=== PATIENT | male | born 1960 | race African-American/Black ===

== ENCOUNTER 2022-05-16 03:55 | Inpatient (IN) ==
[2022-05-16] MEDS ORDERED: ONDANSETRON 4 MG/2 ML VIAL IV PRN (05:30)
[2022-05-16 06:06] LABS: Basophils % 0.2 % (0.0-0.8); Eosinophils # 0.1 10*3/uL (0.0-0.87); Eosinophils % 0.6 % (0.00-10.9); Hematocrit 24.2 VOL% (42.0-52.0); Hemoglobin 7.7 GM/DL (14.0-18.0); Immature Granulocytes Absolute 0.54 #; Lymphocytes # 3.1 10*3/uL (1.4-4.0); Lymphocytes % 17.5 % (21.2-54.2); Mean Corpuscular HGB Conc 31.8 GM/DL (32-36); Mean Corpuscular Volume 77.1 FL (87-102); Mean Platelet Volume 11.8 FL (9.6-12.0); Monocytes # 1.5 10*3/uL (0.11-0.8); Monocytes % 8.7 % (1.7-12.7); Platelet Count 209 T/CUMM (130-400); Red Blood Count 3.14 MC/CUMM (3.8-5.5); Red Cell Distribution Width 14.5 % (9.3-17.3); White Blood Count 17.8 T/CUMM (4-12)
[2022-05-16 06:17] LABS: INR 1.1; PT Patient Result 12.4 SECS (10.1-12.1); Partial Thromboplastin Time 28.1 SECS (23.7-32.9)
[2022-05-16 06:30] LABS: Eosinophils 1 % (0-10); Hypochromia Slight; Lymphocytes 21 % (20-55); Microcytosis Slight; Ovalocytes Slight; Platelet Estimate Adequate; Total Cells Counted 100
[2022-05-16 06:31] LABS: Misc Morphology F
[2022-05-16 06:41] LABS: Alanine Aminotransferase 31 U/L (16-61); Albumin 2.9 G/DL (3.4-5.0); Alkaline Phosphatase 53 U/L (45-117); Aspartate Amino Transferase 23 U/L (0-37); Bilirubin,Total < 0.39 MG/DL (0.20-1.00); Blood Urea Nitrogen 101 MG/DL (7-18); Calcium 7.1 MG/DL (8.5-10.1); Carbon Dioxide 22 MMOL/L (21-32); Chloride 105 MMOL/L (98-107); Glucose 251 MG/DL (74-106); Osmolality,Calculated 312.8 MOS/KG (273-304); Potassium 4.5 MMOL/L (3.5-5.1); Sodium 137 MMOL/L (136-145); Total Protein 6.6 G/DL (6.4-8.2)
[2022-05-16] MEDS: ALBUTEROL 2.5 MG/3 ML NEB RESP TX SCH ×3 (06:50→19:22)
[2022-05-16 07:13] LABS: Arterial Base Excess iSTAT -2 MMOL/L (-2.5-2.5); Arterial Bicarbonate iSTAT 22.8 MMOL/L (20-26); Arterial O2 Saturation iSTAT 99 % (95-100); Arterial PCO2 iSTAT 40 MM HG (35-48); Arterial PO2 iSTAT 150 MM HG (80-95); Arterial Total CO2 iSTAT 24 MMO/L (23-27); Arterial pH iSTAT 7.368 (7.35-7.45)
[2022-05-16 08:42] LABS: Risk Ratio 2.48; VLDL Cholesterol 18.4 MG/DL
[2022-05-16] MEDS: ENOXAPARIN 80 MG/0.8 ML SYRINGE SUBCUT SCH (09:01)
[2022-05-16] MEDS: FUROSEMIDE 40 MG/4 ML VIAL IV SCH ×2 (09:02→17:11)
[2022-05-16] MEDS: AZITHROMYCIN INJ 500 MG in SODIUM CHLORIDE 0.9% 250 ML IV SCH (09:09)
[2022-05-16] MEDS: ISOSORBIDE MONONITRATE 30 MG TABLET PO SCH (10:58)
[2022-05-16] MEDS: ASPIRIN 325 MG TABLET PO SCH (10:58)
[2022-05-16] MEDS: EZETIMIBE 10 MG TABLET PO SCH (10:58)
[2022-05-16] MEDS: PANTOPRAZOLE 40 MG TABLET PO SCH (10:59)
[2022-05-16] MEDS: carvediloL 6.25 MG TABLET PO SCH ×2 (10:59→17:20)
[2022-05-16] MEDS: DOCUSATE SODIUM 100 MG CAPSULE PO SCH ×2 (11:00→20:53)
[2022-05-16] MEDS ORDERED: GLUCAGON 1 MG VIAL IM PRN (11:03)
[2022-05-16] MEDS ORDERED: DEXTROSE 10% 250 ML BAG IV PRN (11:08)
[2022-05-16 12:04] LABS: Basophils % 0.2 % (0.0-0.8); Eosinophils # 0.1 10*3/uL (0.0-0.87); Eosinophils % 0.9 % (0.00-10.9); Hematocrit 24.6 VOL% (42.0-52.0); Immature Granulocytes % 2.7 %; Immature Granulocytes Absolute 0.44 #; Lymphocytes # 3.6 10*3/uL (1.4-4.0); Lymphocytes % 22.2 % (21.2-54.2); Mean Corpuscular HGB Conc 32.5 GM/DL (32-36); Mean Corpuscular Volume 76.4 FL (87-102); Mean Platelet Volume 10.4 FL (9.6-12.0); Monocytes # 1.3 10*3/uL (0.11-0.8); Monocytes % 7.7 % (1.7-12.7); Neutrophils % 66.3 % (38.7-73.9); Platelet Count 269 T/CUMM (130-400); Red Blood Count 3.22 MC/CUMM (3.8-5.5); Red Cell Distribution Width 14.4 % (9.3-17.3); White Blood Count 16.2 T/CUMM (4-12)
[2022-05-16 12:10] LABS: Eosinophils 3 % (0-10); Lymphocytes 26 % (20-55); Platelet Estimate Adequate; Total Cells Counted 100
[2022-05-16 12:11] LABS: Hypochromia Slight; Microcytosis Slight
[2022-05-16 12:25] LABS: Ferritin 257.9 ng/mL (26-388)
[2022-05-16 12:35] LABS: Folate 7.35 NG/ML (5.38-24.0)
[2022-05-16] MEDS: hydrALAZINE 20 MG/1 ML VIAL IV PRN (13:00)
[2022-05-16] MEDS: INSULIN REGULAR 100 UNIT/ML SUBCUT SCH ×3 (13:03→20:53)
[2022-05-16 16:01] LABS: Squamous Epithelial Cell,Urine Occasional /HPF (0-10)
[2022-05-16 16:03] LABS: Bilirubin,Urine Negative (Negative); Blood, Urine Trace mg/dL (Negative); Glucose,Urine (UA) 100 mg/dL (Negative); Ketones,Urine Negative (Negative); Nitrite,Urine Negative (Negative); Protein,Urine 100 mg/dL (Negative); Urine Appearance Clear (Clear); Urine Color Yellow (Yellow); Urine Urobilinogen 0.2 eU/dL (<2.0)
[2022-05-16 16:21] LABS: Barbiturates Screen,Urine Negative (Negative); Benzodiazepines Screen,Urine Negative (Negative); Cannabinoid Screen,Urine Negative (Negative); Opiate Screen,Urine Negative (Negative); Phencyclidine Screen,Urine Negative (Negative)
[2022-05-16] MEDS: ACETAMINOPHEN 325 MG TABLET PO PRN (17:09)
[2022-05-17 07:13] LABS: Basophils % 0.2 % (0.0-0.8); Eosinophils # 0.2 10*3/uL (0.0-0.87); Eosinophils % 1.2 % (0.00-10.9); Hematocrit 23.1 VOL% (42.0-52.0); Hemoglobin 7.6 GM/DL (14.0-18.0); Immature Granulocytes % 2.1 %; Immature Granulocytes Absolute 0.27 #; Lymphocytes # 2.5 10*3/uL (1.4-4.0); Lymphocytes % 19.3 % (21.2-54.2); Mean Corpuscular HGB Conc 32.9 GM/DL (32-36); Mean Platelet Volume 11.3 FL (9.6-12.0); Monocytes # 1.4 10*3/uL (0.11-0.8); Monocytes % 10.8 % (1.7-12.7); Neutrophils % 66.4 % (38.7-73.9); Platelet Count 272 T/CUMM (130-400); Red Blood Count 3.04 MC/CUMM (3.8-5.5); Red Cell Distribution Width 14.4 % (9.3-17.3); White Blood Count 12.8 T/CUMM (4-12)
[2022-05-17 07:31] LABS: Risk Ratio 3.12
[2022-05-17] MEDS: ALBUTEROL 2.5 MG/3 ML NEB RESP TX SCH ×4 (07:31→20:09)
[2022-05-17 07:38] LABS: Calcium 7.5 MG/DL (8.5-10.1); Osmolality,Calculated 309.5 MOS/KG (273-304); Potassium 4.8 MMOL/L (3.5-5.1)
[2022-05-17] MEDS: INSULIN REGULAR 100 UNIT/ML SUBCUT SCH ×4 (08:20→21:21)
[2022-05-17] MEDS: cefTRIAXone 1,000 MG in SODIUM CHLORIDE 0.9% 100 ML IV SCH (09:46)
[2022-05-17] MEDS: FUROSEMIDE 40 MG/4 ML VIAL IV SCH ×2 (09:47→17:26)
[2022-05-17] MEDS: ENOXAPARIN 80 MG/0.8 ML SYRINGE SUBCUT SCH (09:48)
[2022-05-17] MEDS: AZITHROMYCIN INJ 500 MG in SODIUM CHLORIDE 0.9% 250 ML IV SCH (11:47)
[2022-05-17] MEDS ORDERED: NITROGLYCERIN SL 0.4 MG TABLET SL PRN (12:35)
[2022-05-17] MEDS: EZETIMIBE 10 MG TABLET PO SCH (14:44)
[2022-05-17] MEDS: DOCUSATE SODIUM 100 MG CAPSULE PO SCH ×2 (14:44→21:21)
[2022-05-17] MEDS: PANTOPRAZOLE 40 MG TABLET PO SCH (14:44)
[2022-05-17] MEDS: ASPIRIN 325 MG TABLET PO SCH (14:45)
[2022-05-17] MEDS: ISOSORBIDE MONONITRATE 30 MG TABLET PO SCH (14:45)
[2022-05-17] MEDS: FERROUS SULFATE 325 MG TABLET PO SCH ×2 (14:48→21:21)
[2022-05-17] MEDS: carvediloL 6.25 MG TABLET PO SCH (14:52)
[2022-05-17] MEDS: carvediloL 12.5 MG TABLET PO SCH (17:25)
[2022-05-18] MEDS: ALBUTEROL 2.5 MG/3 ML NEB RESP TX SCH ×4 (02:05→19:15)
[2022-05-18 04:22] LABS: Basophils % 0.1 % (0.0-0.8); Eosinophils # 0.1 10*3/uL (0.0-0.87); Eosinophils % 1.3 % (0.00-10.9); Hematocrit 21.4 VOL% (42.0-52.0); Hemoglobin 6.9 GM/DL (14.0-18.0); Immature Granulocytes % 1.5 %; Immature Granulocytes Absolute 0.13 #; Lymphocytes # 2.3 10*3/uL (1.4-4.0); Lymphocytes % 26.6 % (21.2-54.2); Mean Corpuscular HGB Conc 32.2 GM/DL (32-36); Mean Corpuscular Volume 76.4 FL (87-102); Mean Platelet Volume 10.9 FL (9.6-12.0); Monocytes # 1.1 10*3/uL (0.11-0.8); Monocytes % 12.7 % (1.7-12.7); Neutrophils % 57.8 % (38.7-73.9); Platelet Count 229 T/CUMM (130-400); Red Cell Distribution Width 14.2 % (9.3-17.3); White Blood Count 8.5 T/CUMM (4-12)
[2022-05-18 04:48] LABS: Calcium 6.9 MG/DL (8.5-10.1); Osmolality,Calculated 304.2 MOS/KG (273-304); Potassium 4.3 MMOL/L (3.5-5.1)
[2022-05-18] MEDS ORDERED: SODIUM CHLORIDE 0.9% 1,000 ML IV PRN ×2 (07:36→11:51)
[2022-05-18] MEDS: INSULIN REGULAR 100 UNIT/ML SUBCUT SCH ×4 (08:29→21:51)
[2022-05-18] MEDS: carvediloL 12.5 MG TABLET PO SCH (08:37)
[2022-05-18] MEDS: EZETIMIBE 10 MG TABLET PO SCH (08:37)
[2022-05-18] MEDS: DOCUSATE SODIUM 100 MG CAPSULE PO SCH ×2 (08:37→21:51)
[2022-05-18] MEDS: FERROUS SULFATE 325 MG TABLET PO SCH (08:37)
[2022-05-18] MEDS: ISOSORBIDE MONONITRATE 30 MG TABLET PO SCH (08:37)
[2022-05-18] MEDS: PANTOPRAZOLE 40 MG TABLET PO SCH (08:37)
[2022-05-18] MEDS: cefTRIAXone 1,000 MG in SODIUM CHLORIDE 0.9% 100 ML IV SCH (08:38)
[2022-05-18] MEDS: FUROSEMIDE 40 MG/4 ML VIAL IV SCH ×2 (08:38→17:33)
[2022-05-18] MEDS ORDERED: LIDOCAINE 1% 5 ML VIAL ONE (09:11)
[2022-05-18] MEDS ORDERED: BUPIVACAINE MPF 0.25% 10 ML VIAL ONE (09:11)
[2022-05-18] MEDS ORDERED: HEPARIN 5,000 UNIT/1 ML VIAL ONE (09:11)
[2022-05-18] MEDS ORDERED: ETOMIDATE 40 MG/20 ML VIAL IV ONE (09:17)
[2022-05-18] MEDS ORDERED: MIDAZOLAM 2 MG/2 ML VIAL ONE (09:17)
[2022-05-18] MEDS ORDERED: LIDOCAINE 2% 5 ML VIAL ONE (09:17)
[2022-05-18] MEDS ORDERED: propofoL 200 MG/20 ML VIAL IV ONE (09:17)
[2022-05-18] MEDS ORDERED: fentaNYL 100 MCG/2 ML VIAL ONE (09:17)
[2022-05-18] MEDS ORDERED: SODIUM CHLORIDE 0.9% 100 ML IV ONE (09:18)
[2022-05-18 09:39] LABS: Folate 6.46 NG/ML (5.38-24.0)
[2022-05-18] MEDS ORDERED: NITROGLYCERIN 2% OINT 1 INCH/GM PACK TOP ONE (09:39)
[2022-05-18] MEDS ORDERED: TISSUE ADHESIVE 1 EACH APPLICATOR TOP ONE (10:39)
[2022-05-18 11:04] LABS: % Iron Saturation 16.6 % (18-50); Ferritin 223.2 ng/mL (26-388)
[2022-05-18] MEDS ORDERED: HEPARIN 10,000 UNIT/10 ML VIAL IV PRN (12:35)
[2022-05-18 12:56] LABS: Basophils % 0.2 % (0.0-0.8); Eosinophils # 0.1 10*3/uL (0.0-0.87); Eosinophils % 1.6 % (0.00-10.9); Hemoglobin 7.2 GM/DL (14.0-18.0); Immature Granulocytes % 1.2 %; Immature Granulocytes Absolute 0.07 #; Lymphocytes # 1.3 10*3/uL (1.4-4.0); Lymphocytes % 21.6 % (21.2-54.2); Mean Corpuscular HGB Conc 32.7 GM/DL (32-36); Mean Corpuscular Volume 76.9 FL (87-102); Mean Platelet Volume 10.9 FL (9.6-12.0); Monocytes # 0.4 10*3/uL (0.11-0.8); Monocytes % 6.7 % (1.7-12.7); Neutrophils % 68.7 % (38.7-73.9); Platelet Count 219 T/CUMM (130-400); Red Blood Count 2.86 MC/CUMM (3.8-5.5); Red Cell Distribution Width 14.4 % (9.3-17.3); White Blood Count 5.8 T/CUMM (4-12)
[2022-05-18] MEDS ORDERED: EPOETIN ALFA-EPBX 3,000 UNIT/ML VIAL IV PRN (13:14)
[2022-05-18 13:21] LABS: Folate 6.95 NG/ML (5.38-24.0); Vitamin B12 805 PG/ML (211-911)
[2022-05-18 14:11] LABS: Sedimentation Rate-Westergren 101 MM/HR (0-20)
[2022-05-18] MEDS: hydrALAZINE 20 MG/1 ML VIAL IV PRN (16:37)
[2022-05-18] MEDS: ACETAMINOPHEN 325 MG TABLET PO PRN (16:37)
[2022-05-18] MEDS: ASPIRIN 325 MG TABLET PO SCH (16:51)
[2022-05-18] MEDS: ENOXAPARIN 80 MG/0.8 ML SYRINGE SUBCUT SCH (16:51)
[2022-05-18] MEDS: carvediloL 25 MG TABLET PO SCH (17:36)
[2022-05-18] MEDS: AZITHROMYCIN INJ 500 MG in SODIUM CHLORIDE 0.9% 250 ML IV SCH (19:45)
[2022-05-18 20:19] LABS: Hematocrit 31.1 VOL% (42.0-52.0); Hemoglobin 10.4 GM/DL (14.0-18.0)
[2022-05-19] MEDS: ALBUTEROL 2.5 MG/3 ML NEB RESP TX SCH ×4 (00:30→19:00)
[2022-05-19 05:36] LABS: Basophils % 0.1 % (0.0-0.8); Eosinophils # 0.1 10*3/uL (0.0-0.87); Hematocrit 32.8 VOL% (42.0-52.0); Hemoglobin 10.8 GM/DL (14.0-18.0); Immature Granulocytes Absolute 0.12 #; Lymphocytes # 1.2 10*3/uL (1.4-4.0); Lymphocytes % 10.4 % (21.2-54.2); Mean Corpuscular HGB Conc 32.9 GM/DL (32-36); Mean Corpuscular Volume 79.8 FL (87-102); Mean Platelet Volume 10.4 FL (9.6-12.0); Monocytes # 1.3 10*3/uL (0.11-0.8); Monocytes % 11.3 % (1.7-12.7); Neutrophils % 76.2 % (38.7-73.9); Platelet Count 200 T/CUMM (130-400); Red Blood Count 4.11 MC/CUMM (3.8-5.5); Red Cell Distribution Width 15.8 % (9.3-17.3); White Blood Count 11.7 T/CUMM (4-12)
[2022-05-19 06:00] LABS: Calcium 7.8 MG/DL (8.5-10.1); Osmolality,Calculated 293.8 MOS/KG (273-304); Potassium 4.2 MMOL/L (3.5-5.1)
[2022-05-19 07:34] LABS: Hepatitis B Surface Ag Quant < 0.10 Index; Hepatitis B Surface Ag Result Non-Reactive (NonReactive)
[2022-05-19] MEDS: INSULIN REGULAR 100 UNIT/ML SUBCUT SCH ×4 (07:38→21:34)
[2022-05-19 09:32] LABS: Hemoglobin A1 (Alkaline) 97.6 % (96.5-98.5); Hemoglobin A2 (Alkaline) 2.4 % (1.5-3.5)
[2022-05-19] MEDS: cefTRIAXone 1,000 MG in SODIUM CHLORIDE 0.9% 100 ML IV SCH (11:53)
[2022-05-19] MEDS: PANTOPRAZOLE 40 MG TABLET PO SCH (11:54)
[2022-05-19] MEDS: carvediloL 25 MG TABLET PO SCH ×2 (11:54→17:53)
[2022-05-19] MEDS: ASPIRIN 325 MG TABLET PO SCH (11:54)
[2022-05-19] MEDS: EZETIMIBE 10 MG TABLET PO SCH (11:55)
[2022-05-19] MEDS: ISOSORBIDE MONONITRATE 30 MG TABLET PO SCH (11:55)
[2022-05-19] MEDS: DOCUSATE SODIUM 100 MG CAPSULE PO SCH ×2 (11:55→21:34)
[2022-05-19] MEDS: ENOXAPARIN 80 MG/0.8 ML SYRINGE SUBCUT SCH (11:57)
[2022-05-19] MEDS: FUROSEMIDE 40 MG/4 ML VIAL IV SCH (12:06)
[2022-05-19] MEDS: AZITHROMYCIN INJ 500 MG in SODIUM CHLORIDE 0.9% 250 ML IV SCH (12:41)
[2022-05-19] MEDS: amLODIPine 5 MG TABLET PO SCH (17:17)
[2022-05-19] MEDS: FERRIC GLUCONATE COMPLEX 125 MG in SODIUM CHLORIDE 0.9% 100 ML IV SCH (17:21)
[2022-05-20 05:19] LABS: Basophils % 0.1 % (0.0-0.8); Eosinophils # 0.1 10*3/uL (0.0-0.87); Eosinophils % 1.3 % (0.00-10.9); Hematocrit 32.3 VOL% (42.0-52.0); Hemoglobin 10.4 GM/DL (14.0-18.0); Immature Granulocytes % 1.3 %; Immature Granulocytes Absolute 0.14 #; Lymphocytes # 1.7 10*3/uL (1.4-4.0); Mean Corpuscular HGB Conc 32.2 GM/DL (32-36); Mean Corpuscular Volume 80.8 FL (87-102); Mean Platelet Volume 11.3 FL (9.6-12.0); Monocytes # 1.4 10*3/uL (0.11-0.8); Monocytes % 13.6 % (1.7-12.7); Neutrophils % 67.7 % (38.7-73.9); Platelet Count 200 T/CUMM (130-400); Red Cell Distribution Width 15.5 % (9.3-17.3); White Blood Count 10.5 T/CUMM (4-12)
[2022-05-20 05:33] LABS: Calcium 7.9 MG/DL (8.5-10.1); Osmolality,Calculated 279.2 MOS/KG (273-304); Potassium 4.2 MMOL/L (3.5-5.1)
[2022-05-20] MEDS: ALBUTEROL 2.5 MG/3 ML NEB RESP TX SCH ×4 (06:55→19:55)
[2022-05-20] MEDS ORDERED: LACTULOSE 20 GM/30 ML UDCUP PO PRN (09:55)
[2022-05-20] MEDS: amLODIPine 5 MG TABLET PO SCH (11:05)
[2022-05-20] MEDS: carvediloL 25 MG TABLET PO SCH ×2 (11:05→19:25)
[2022-05-20] MEDS: ISOSORBIDE MONONITRATE 30 MG TABLET PO SCH (11:05)
[2022-05-20] MEDS: INSULIN REGULAR 100 UNIT/ML SUBCUT SCH ×4 (11:09→21:03)
[2022-05-20] MEDS: FERRIC GLUCONATE COMPLEX 125 MG in SODIUM CHLORIDE 0.9% 100 ML IV SCH (12:00)
[2022-05-20] MEDS ORDERED: DIAZEPAM 5 MG TABLET PO ONE (13:19)
[2022-05-20] MEDS ORDERED: diphenhydrAMINE CAP 50 MG CAPSULE PO ONE (13:19)
[2022-05-20] MEDS ORDERED: HEPARIN/NACL 0.9% 2 UNITS/ML 0 UNIT/0 ML BAG IV ONE (14:27)
[2022-05-20] MEDS ORDERED: HEPARIN/NACL 0.9% 2 UNITS/ML 2,000 UNIT/1,000 ML BAG IV ONE (15:27)
[2022-05-20] MEDS ORDERED: MIDAZOLAM 2 MG/2 ML VIAL ONE (15:58)
[2022-05-20] MEDS ORDERED: fentaNYL 100 MCG/2 ML VIAL ONE (15:59)
[2022-05-20] MEDS ORDERED: MORPHINE 2 MG/1 ML SYRINGE IV PRN (17:06)
[2022-05-20] MEDS: cefTRIAXone 1,000 MG in SODIUM CHLORIDE 0.9% 100 ML IV SCH (17:15)
[2022-05-20] MEDS: AZITHROMYCIN INJ 500 MG in SODIUM CHLORIDE 0.9% 250 ML IV SCH (17:45)
[2022-05-20] MEDS: DOCUSATE SODIUM 100 MG CAPSULE PO SCH ×2 (17:53→21:03)
[2022-05-20] MEDS: FUROSEMIDE 80 MG TABLET PO SCH (19:25)
[2022-05-20] MEDS: EZETIMIBE 10 MG TABLET PO SCH (19:25)
[2022-05-20] MEDS: ASPIRIN 325 MG TABLET PO SCH (19:25)
[2022-05-20] MEDS: PANTOPRAZOLE 40 MG TABLET PO SCH (19:25)
[2022-05-20] MEDS: POLYETHYLENE GLYCOL POWDER 17 GM PACK PO SCH (19:26)
[2022-05-21] MEDS: ALBUTEROL 2.5 MG/3 ML NEB RESP TX SCH ×4 (00:42→19:48)
[2022-05-21 05:23] LABS: Basophils % 0.2 % (0.0-0.8); Eosinophils # 0.2 10*3/uL (0.0-0.87); Eosinophils % 1.4 % (0.00-10.9); Hematocrit 30.9 VOL% (42.0-52.0); Hemoglobin 9.9 GM/DL (14.0-18.0); Immature Granulocytes % 1.6 %; Immature Granulocytes Absolute 0.19 #; Lymphocytes # 1.8 10*3/uL (1.4-4.0); Lymphocytes % 14.9 % (21.2-54.2); Mean Corpuscular Volume 81.1 FL (87-102); Monocytes # 1.4 10*3/uL (0.11-0.8); Neutrophils % 69.9 % (38.7-73.9); Platelet Count 176 T/CUMM (130-400); Red Blood Count 3.81 MC/CUMM (3.8-5.5); Red Cell Distribution Width 15.7 % (9.3-17.3); White Blood Count 11.9 T/CUMM (4-12)
[2022-05-21 05:36] LABS: Osmolality,Calculated 273.4 MOS/KG (273-304); Potassium 4.3 MMOL/L (3.5-5.1)
[2022-05-21] MEDS: cefTRIAXone 1,000 MG in SODIUM CHLORIDE 0.9% 100 ML IV SCH (09:18)
[2022-05-21] MEDS: PANTOPRAZOLE 40 MG TABLET PO SCH (09:21)
[2022-05-21] MEDS: POLYETHYLENE GLYCOL POWDER 17 GM PACK PO SCH (09:21)
[2022-05-21] MEDS: EZETIMIBE 10 MG TABLET PO SCH (09:22)
[2022-05-21] MEDS: ASPIRIN 325 MG TABLET PO SCH (09:22)
[2022-05-21] MEDS: FUROSEMIDE 80 MG TABLET PO SCH (09:22)
[2022-05-21] MEDS: carvediloL 25 MG TABLET PO SCH ×2 (09:22→16:06)
[2022-05-21] MEDS: ISOSORBIDE MONONITRATE 30 MG TABLET PO SCH (09:22)
[2022-05-21] MEDS: amLODIPine 5 MG TABLET PO SCH (09:22)
[2022-05-21] MEDS: DOCUSATE SODIUM 100 MG CAPSULE PO SCH ×2 (09:22→20:42)
[2022-05-21] MEDS: INSULIN REGULAR 100 UNIT/ML SUBCUT SCH ×4 (09:29→20:41)
[2022-05-21] MEDS: FERRIC GLUCONATE COMPLEX 125 MG in SODIUM CHLORIDE 0.9% 100 ML IV SCH (10:44)
[2022-05-21] MEDS: AZITHROMYCIN INJ 500 MG in SODIUM CHLORIDE 0.9% 250 ML IV SCH (12:02)
[2022-05-21] MEDS: ATORVASTATIN 40 MG TABLET PO SCH (20:42)
[2022-05-22] MEDS: ALBUTEROL 2.5 MG/3 ML NEB RESP TX SCH ×4 (01:58→18:42)
[2022-05-22 06:08] LABS: Basophils % 0.3 % (0.0-0.8); Eosinophils # 0.2 10*3/uL (0.0-0.87); Eosinophils % 1.5 % (0.00-10.9); Hematocrit 30.6 VOL% (42.0-52.0); Hemoglobin 9.9 GM/DL (14.0-18.0); Immature Granulocytes % 1.3 %; Lymphocytes # 1.5 10*3/uL (1.4-4.0); Lymphocytes % 10.1 % (21.2-54.2); Mean Corpuscular HGB Conc 32.4 GM/DL (32-36); Mean Corpuscular Volume 82.5 FL (87-102); Mean Platelet Volume 11.3 FL (9.6-12.0); Monocytes # 1.4 10*3/uL (0.11-0.8); Monocytes % 8.9 % (1.7-12.7); Neutrophils % 77.9 % (38.7-73.9); Platelet Count 177 T/CUMM (130-400); Red Blood Count 3.71 MC/CUMM (3.8-5.5); Red Cell Distribution Width 15.5 % (9.3-17.3); White Blood Count 15.2 T/CUMM (4-12)
[2022-05-22 06:24] LABS: Calcium 8.4 MG/DL (8.5-10.1); Osmolality,Calculated 278.4 MOS/KG (273-304); Potassium 4.6 MMOL/L (3.5-5.1)
[2022-05-22] MEDS: INSULIN REGULAR 100 UNIT/ML SUBCUT SCH ×4 (08:24→20:46)
[2022-05-22] MEDS: POLYETHYLENE GLYCOL POWDER 17 GM PACK PO SCH (08:34)
[2022-05-22] MEDS: cefTRIAXone 1,000 MG in SODIUM CHLORIDE 0.9% 100 ML IV SCH (08:34)
[2022-05-22] MEDS: amLODIPine 5 MG TABLET PO SCH (08:35)
[2022-05-22] MEDS: ISOSORBIDE MONONITRATE 30 MG TABLET PO SCH (08:35)
[2022-05-22] MEDS: FUROSEMIDE 80 MG TABLET PO SCH (08:35)
[2022-05-22] MEDS: carvediloL 25 MG TABLET PO SCH ×2 (08:35→16:13)
[2022-05-22] MEDS: DOCUSATE SODIUM 100 MG CAPSULE PO SCH ×2 (08:35→20:43)
[2022-05-22] MEDS: ASPIRIN 325 MG TABLET PO SCH (08:35)
[2022-05-22] MEDS: PANTOPRAZOLE 40 MG TABLET PO SCH (08:36)
[2022-05-22] MEDS: AZITHROMYCIN INJ 500 MG in SODIUM CHLORIDE 0.9% 250 ML IV SCH (09:45)
[2022-05-22] MEDS: FERRIC GLUCONATE COMPLEX 125 MG in SODIUM CHLORIDE 0.9% 100 ML IV SCH (10:18)
[2022-05-22] MEDS: ATORVASTATIN 40 MG TABLET PO SCH (20:43)
[2022-05-22] MEDS: MELATONIN 3 MG TABLET PO SCH (20:43)
[2022-05-23] MEDS: ALBUTEROL 2.5 MG/3 ML NEB RESP TX SCH ×4 (00:50→19:35)
[2022-05-23 05:37] LABS: Basophils % 0.1 % (0.0-0.8); Eosinophils # 0.2 10*3/uL (0.0-0.87); Eosinophils % 1.5 % (0.00-10.9); Hematocrit 28.9 VOL% (42.0-52.0); Hemoglobin 9.4 GM/DL (14.0-18.0); Immature Granulocytes % 0.9 %; Immature Granulocytes Absolute 0.13 #; Lymphocytes # 1.3 10*3/uL (1.4-4.0); Lymphocytes % 8.9 % (21.2-54.2); Mean Corpuscular HGB Conc 32.5 GM/DL (32-36); Mean Corpuscular Volume 81.4 FL (87-102); Mean Platelet Volume 11.2 FL (9.6-12.0); Monocytes # 1.1 10*3/uL (0.11-0.8); Monocytes % 7.4 % (1.7-12.7); Neutrophils % 81.2 % (38.7-73.9); Platelet Count 190 T/CUMM (130-400); Red Blood Count 3.55 MC/CUMM (3.8-5.5); Red Cell Distribution Width 15.5 % (9.3-17.3); White Blood Count 14.5 T/CUMM (4-12)
[2022-05-23 05:53] LABS: Calcium 8.1 MG/DL (8.5-10.1); Osmolality,Calculated 276.1 MOS/KG (273-304); Potassium 4.6 MMOL/L (3.5-5.1)
[2022-05-23] MEDS: INSULIN REGULAR 100 UNIT/ML SUBCUT SCH ×4 (08:19→20:23)
[2022-05-23] MEDS: POLYETHYLENE GLYCOL POWDER 17 GM PACK PO SCH (09:08)
[2022-05-23] MEDS: AZITHROMYCIN INJ 500 MG in SODIUM CHLORIDE 0.9% 250 ML IV SCH (09:10)
[2022-05-23] MEDS: FERRIC GLUCONATE COMPLEX 125 MG in SODIUM CHLORIDE 0.9% 100 ML IV SCH (09:12)
[2022-05-23] MEDS: ASPIRIN 325 MG TABLET PO SCH (09:14)
[2022-05-23] MEDS: amLODIPine 5 MG TABLET PO SCH (09:14)
[2022-05-23] MEDS: PANTOPRAZOLE 40 MG TABLET PO SCH (09:14)
[2022-05-23] MEDS: carvediloL 25 MG TABLET PO SCH ×2 (09:14→16:21)
[2022-05-23] MEDS: ISOSORBIDE MONONITRATE 30 MG TABLET PO SCH (09:14)
[2022-05-23] MEDS: DOCUSATE SODIUM 100 MG CAPSULE PO SCH ×2 (09:14→20:24)
[2022-05-23] MEDS: FUROSEMIDE 80 MG TABLET PO SCH (09:14)
[2022-05-23] MEDS: cefTRIAXone 1,000 MG VIAL IM SCH (09:23)
[2022-05-23 16:50] LABS: Bilirubin,Urine Negative (Negative); Blood, Urine Negative (Negative); Glucose,Urine (UA) 250 mg/dL (Negative); Ketones,Urine Negative (Negative); Nitrite,Urine Negative (Negative); Protein,Urine >=300 mg/dL (Negative); Urine Appearance Clear (Clear); Urine Color Yellow (Yellow); Urine Urobilinogen 0.2 eU/dL (<2.0); Urine pH 5.5 (4.5-8.0)
[2022-05-23 16:53] LABS: Mucus,Urine Occasional /LPF (Occasional); Squamous Epithelial Cell,Urine Occasional /HPF (0-10)
[2022-05-23] MEDS: ATORVASTATIN 40 MG TABLET PO SCH (20:25)
[2022-05-23] MEDS: MELATONIN 3 MG TABLET PO SCH (20:25)
[2022-05-23] MEDS ORDERED: LEVALBUTEROL 1.25 MG/3 ML NEB RESP TX ONE (22:58)
[2022-05-24] MEDS: ALBUTEROL 2.5 MG/3 ML NEB RESP TX SCH ×2 (00:09→07:00)
[2022-05-24 05:59] LABS: Basophils % 0.2 % (0.0-0.8); Eosinophils # 0.2 10*3/uL (0.0-0.87); Eosinophils % 1.5 % (0.00-10.9); Hematocrit 28.3 VOL% (42.0-52.0); Immature Granulocytes % 0.9 %; Immature Granulocytes Absolute 0.12 #; Lymphocytes # 1.5 10*3/uL (1.4-4.0); Lymphocytes % 11.4 % (21.2-54.2); Mean Corpuscular HGB Conc 31.8 GM/DL (32-36); Mean Corpuscular Volume 81.6 FL (87-102); Mean Platelet Volume 11.1 FL (9.6-12.0); Monocytes # 1.2 10*3/uL (0.11-0.8); Monocytes % 8.7 % (1.7-12.7); Neutrophils % 77.3 % (38.7-73.9); Platelet Count 190 T/CUMM (130-400); Red Blood Count 3.47 MC/CUMM (3.8-5.5); Red Cell Distribution Width 15.2 % (9.3-17.3); White Blood Count 13.4 T/CUMM (4-12)
[2022-05-24 06:22] LABS: Calcium 8.2 MG/DL (8.5-10.1); Osmolality,Calculated 272.5 MOS/KG (273-304); Potassium 4.2 MMOL/L (3.5-5.1)
[2022-05-24] MEDS: carvediloL 25 MG TABLET PO SCH (07:42)
[2022-05-24] MEDS: INSULIN REGULAR 100 UNIT/ML SUBCUT SCH ×2 (07:48→12:48)
[2022-05-24] MEDS: DOCUSATE SODIUM 100 MG CAPSULE PO SCH (08:01)
[2022-05-24] MEDS: POLYETHYLENE GLYCOL POWDER 17 GM PACK PO SCH (08:01)
[2022-05-24] MEDS: FERRIC GLUCONATE COMPLEX 125 MG in SODIUM CHLORIDE 0.9% 100 ML IV SCH (08:13)
[2022-05-24] MEDS: cefTRIAXone 1,000 MG VIAL IM SCH (08:17)
[2022-05-24] MEDS: ASPIRIN 325 MG TABLET PO SCH (08:18)
[2022-05-24] MEDS: PANTOPRAZOLE 40 MG TABLET PO SCH (08:18)
[2022-05-24] MEDS: amLODIPine 5 MG TABLET PO SCH (08:18)
[2022-05-24] MEDS: ISOSORBIDE MONONITRATE 30 MG TABLET PO SCH (08:18)
[2022-05-24] MEDS: FUROSEMIDE 80 MG TABLET PO SCH (08:18)
[2022-05-24 12:48] VITALS: BP 130/75
== END 2022-05-24 14:09 | disposition home or self-care (01) | DRG 190 ==
LOC: SUATTDRO 05:09 → N.TELES 05:09
PROVIDERS: ADMIT Internal Medicine; ATTEND Internal Medicine